=== PATIENT | male | born 1975 | race Caucasian/White ===

== ENCOUNTER → 2019-03-03 | Outpatient (CLI) | payer BC ==
--- NOTE | 2019-03-03 16:16 | XR ---
EXAMINATION TYPE: XR chest 2V DATE OF EXAM: 03/03/2019 COMPARISON: None HISTORY: Chest pain TECHNIQUE: Frontal and lateral views of the chest are obtained. FINDINGS: There is no focal air space opacity, pleural effusion, or pneumothorax seen. The cardiac silhouette size is within normal limits. The osseous structures are intact. IMPRESSION: No acute cardiopulmonary process.
== END | disposition home or self-care (01) ==
LOC: RADXRMAIN 13:11
PROVIDERS: ATTEND Family Medicine
DX: R07.9 Chest pain, unspecified (principal)
CPT/HCPCS: 71046

== ENCOUNTER → 2019-11-02 | Outpatient (CLI) | payer BC ==
--- NOTE | 2019-11-02 14:34 | XR ---
EXAMINATION TYPE: XR foot complete LT DATE OF EXAM: 11/02/2019 COMPARISON: NONE HISTORY: Pain TECHNIQUE: Two views are submitted of the left foot and 3 views of the left ankle. FINDINGS: There is soft tissue edema. There is small ossific densities adjacent to the mid medial malleolus. Re maining osseous structures intact. No acute fracture. No dislocation. IMPRESSION: 1. Soft tissue edema. Correlate for avulsion fracture medial malleolus.
== END | disposition home or self-care (01) ==
LOC: RADXRMAIN 13:44
PROVIDERS: ATTEND Family Medicine
DX: M79.89 Other specified soft tissue disorders (principal); M25.572 Pain in left ankle and joints of left foot; M79.672 Pain in left foot

== ENCOUNTER → 2023-12-17 | Outpatient (CLI) | payer BC ==
[2023-12-17 14:06] VITALS: BP 124/74; PULSE 64; RESP 16; TEMP 97.7
--- NOTE | 2023-12-17 14:32 | P.SLEEP ---
History of Present Illness DATE: 12/17/2023 CONSULTATION/NEW PATIENT EVALUATION HISTORY OF PRESENT ILLNESS/SLEEP-WAKE EVALUATION: 48-year-old gentleman had b een evaluated in the sleep center for possible obstructive sleep apnea hypopnea syndrome. SLEEP SCHEDULE: Usually sleep schedule 9:30 PM to 4:15 AM on weekdays and from 1010:30 PM to 78 AM on weekend. FALLING ASLEEP: Patient does not have problems with falling asleep, although has TV set in bedroom. DURING SLEEP: Patient sleeps in different positions with loud snoring and sometimes awakenings from sleep. No history of hypnogogical hallucinations, sleep paralysis, or cataplexy. DURING THE DAY/WAKE STATE: In the morning patient wake up tired, no energy during the day. Cushing sleepiness scale is 7. Usually patient does not take naps. PAST MEDICAL HISTORY: Mostly negative. PAST SURGICAL HISTORY: None. MEDICATIONS: None. SOCIAL HISTORY: Please see below. FAMILY HISTORY: Snoring, epilepsy, cancer, headaches. REVIEW OF SYSTEMS: Loud snoring, awakenings from sleep. No fevers. No double vision. No recent chest pain. No shortness of breath. No abdominal pain. No bleeding episodes. No blood in urine. No seizure episodes. PHYSICAL EXAMINATION: GENERAL: A pleasant patient without any distress. VITAL SIGNS: Please see below, weight 211 pounds, BMI 27.8. HEENT: PERRLA, EOMI. Evaluation of oropharynx showed tongue protrudes midline, low position of soft palate Mallampati 23, big uvula, retrognathia 4 mm. NECK: Supple. No JVD. Thyroid is not palpable. 15.5 inches in circumference. LUNGS: Clear to percussion and to auscultation. Good air exchange. No wheezing or rhonchi. HEART: S1, S2 regular. No murmurs, gallops or rubs. ABDOMEN: Soft and nontender. Bowel sounds are present. No organomegaly appreciated. EXTREMITIES: No clubbing or cyanosis. BUSINESS RISK CONSULTANT: Awake, alert, and oriented x3. Cranial nerves 2 to 7 intact. There is no fasciculation or atrophy noted. No focal deficits observed. ASSESSMENT: 1. Snoring, awakenings from sleep, significant retrognathia 4 mm, moderately low soft palate. Possible obstructive sleep apnea hypopnea syndrome. 2 history of restless leg symptoms PLAN: 1. Home sleep apnea test for evaluation of patient's breathing during sleep. 2. Following plan after reading sleep study. 3. Preferable position during sleep on the side. 4. No driving if patient feels any sleepiness. Patient is aware of civil and criminal liability for unsafe driving. 5. Sleep hygiene with regular sleep time for at least 7.5-8 hour s. 6. Watching weight. Thank you very much for referring this patient for consultation. Sincerely, Butch Huddleston MD, PhD, FAASM. Diplomat of [employer], Sleep Medicine Board by [employer] Home Health Aide Caregiver of [facility] Past Medical History Past Medical History: No Reported History Additional Past Medical History / Comment(s): low back pain History of Any Multi-Drug Resistant Organisms: None Reported Past Surgical History: No Surgical Hx Reported Past Psychological History: No Psychological Hx Reported Smoking Status: Former smoker Past Alcohol Use History: Occasional Past Drug Use History: None Reported - Past Family History Mother Family Medical History: Cancer, Hyperlipidemia, Hypertension, Rheumatoid Arthritis (RA) Additional Family Medical History / Comment(s): ulcers, headaches, Medications and Allergies Home Medications Medication Instructions Recorded Confirmed Type Magnesium 200 mg PO DAILY 12/17/23 12/17/23 History Physical Exam Vitals: Vital Signs Temp Pulse Resp BP Pulse Ox 12/17/23 14:05 97.7 F 64 16 124/74 98 Intake and Output 12/16/23 12/17/23 12/17/23 22:59 06:59 14:59 Other: Weight 95.708 kg Sleep Note - Sleep Data ESS Total: 7 - Sleep Note Sleep Note: Temperature: 97.7 F Pulse Rate: 64 Respiratory Rate: 16 Blood Pressure: 124/74 SpO2: 98 Height: 6 ft 1 in Weight: 95.708 kg BMI: Neck Circumference: 15.5
== END ==
LOC: 3 N SLEEP 13:41
PROVIDERS: ATTEND Internal Medicine
DX: R06.83 Snoring (principal); M26.19 Other specified anomalies of jaw-cranial base relationship; Z87.39 Personal history of other diseases of the musculoskeletal system and connective tissue; Z87.891 Personal history of nicotine dependence
CPT/HCPCS: 99211

== ENCOUNTER → 2023-12-24 | Outpatient (CLI) | payer BC ==
--- NOTE | 2024-01-16 15:57 | SLS ---
SLEEP STUDY PROCEDURE: Home sleep apnea test. DESCRIPTION OF PROCEDURE: Home sleep apnea test has been done following standard procedure with monitoring respiration with pressure transducer, chest bout, and pulse oximetry. RESULTS: Recording done for 9 hours 7 minutes, evaluation time 8 hours 58 minutes. Respiratory channel showed 12 apneas and 20 hypopneas with total apnea-hypopnea index 3.6, on the back position 4.0, with lowest oxygen level 85%. Heart rate in the range between 41 and 91, average 57 by computer calculation. IMPRESSION: 1. Very minimal respiratory abnormalities by results of home sleep apnea test which is in normal range by today's criteria. There is a possibility of false negative results because we did not know exactly how many hours the patient slept. All time of recording considered to be sleep time by home sleep apnea test. 2. Snoring has been documented. PLAN: 1. I will see patient for followup visit to explain results of the test and recommendations. 2. If necessary, we will consider to repeat home sleep apnea test or polysomnogram. 3. No driving if feeling sleepiness. 4. Sleep hygiene with time in bed for at least 8 hours. Thank you very much for allowing me to participate in management of your patient. Sincerely, Butch Huddleston MD, PhD, FAASM Diplomat of [employer] [employer] Sleep Medicine Board of [place] [employer] Ear Nose Throat Physician of [facility] [place] LITZY / DORETHA: [id number] / ROSANNA
== END ==
LOC: 3 N SLEEP 11:06
PROVIDERS: ATTEND Internal Medicine
DX: G47.33 Obstructive sleep apnea (adult) (pediatric) (principal)